=== PATIENT | female | born 1980 | race Caucasian/White ===

== ENCOUNTER 2016-12-10 20:38 | Emergency (ER) | payer MEDICAID ==
[2016-12-10 20:46] VITALS: TEMP 98.2; O2SAT 96
[2016-12-10 21:52] LABS: % IMMATURE GRANULYOCYTES 0.4 % (0.0-1.1); ABSOLUTE IMMATURE GRANULOCYTES 0.02 10^3/uL (0.00-0.10); ADD DIFF? NO; ADD MORPH? YES; ADD SCAN? NO; ATYPICAL LYMPHOCYTE FLAG 10 (0-99); FRAGMENT RBC FLAG 20 (0-99); HEMATOCRIT 35.1 % (38.0-47.0); HEMOGLOBIN 11.1 g/dL (12.6-16.3); LEFT SHIFT FLG 0 (0-99); LIPEMIA HEMOLYSIS FLAG 80 (0-99); MEAN CELL HEMOGLOBIN 21.8 pg (27.9-34.1); MEAN CELL HEMOGLOBIN CONCENTR. 31.6 g/dL (32.4-36.7); MEAN PLATELET VOLUME 8.7 fL (8.7-11.7); PLATELET CLUMPS FLAG 0 (0-99); PLATELET COUNT 342 10^3/uL (150-400); RED CELL DISTRIBUTION WIDTH 18.6 % (11.5-15.2)
[2016-12-10 21:57] LABS: MEAN CELL VOLUME 68.8 fL (81.5-99.8)
--- NOTE | 2016-12-10 22:13 | EDPHY ---
H & P Stated Complaint: vaginal spotting with RLQ, pelvic and back pain since Thursday Time Seen by Provider: 12/10/16 22:01 HPI/ROS: HPI The patient presents with irregular vaginal bleeding which began 7 days ago. She says she is having daily episodes of brown black spotting which is mild. The bleeding started at the time where she would expect her normal menstrual period which she describes as a heavy flow with bright red blood. She is concerned because this is quite different. She has a mild right-sided lower quadrant sharp sort of pain which has been present in similar time course. She is complaining of lower back pain which is constant and feels like an ache to her as well. Her last normal menstrual period was November 08. 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 She is followed by [facility].. REVIEW OF SYSTEMS Constitutional: No fever, no chills. Eyes: No discharge. ENT: No sore throat. Cardiovascular: No chest pain, no palpitations. Respiratory: No cough, no shortness of breath. Gastrointestinal: No abdominal pain, no vomiting. Genitourinary: No hematuria. Musculoskeletal: No back pain. Skin: No rashes. Neurological: No headache. PMHx: As above PHYSICAL General Appearance: Alert, no distress Eyes: Pupils equal and round no pallor or injection ENT, Mouth: Mucous membranes moist Respiratory: There are no retractions, lungs are clear to auscultation Cardiovascular: Regular rate and rhythm Gastrointestinal: Abdomen is soft and non-tender, no masses, bowel sounds normal Neurological: A&O, moves all extremities Skin: Warm and dry, no rashes Musculoskeletal: Neck is supple non tender Extremities: symmetrical, full range of motion Psychiatric: Patient is oriented X 3, there is no agitation Source: Patient Exam Limitations: No limitations - Personal History LMP (Females 10-55): Irregular Current Tetanus/Diphtheria Vaccine: No - Medical/Surgical History Hx Asthma: No Hx Chronic Respiratory Disease: No Hx Diabetes: No Hx Cardiac Disease: No Hx Renal Disease: No Hx Cirrhosis: No Hx Alcoholism: No Hx HIV/AIDS: No Hx Splenectomy or Spleen Trauma: No Other PMH: pmh- migraines. 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), hysteroscopy, L fallopian tube removed - Social History Smoking Status: Never smoked Constitutional: Initial Vital Signs Temperature (C) 36.8 C 12/10/16 20:44 Heart Rate 76 12/10/16 20:44 Respiratory Rate 16 12/10/16 20:44 Blood Pressure 121/88 H 12/10/16 20:44 O2 Sat (%) 96 12/10/16 20:44 O2 Delivery Mode Room Air Allergies/Adverse Reactions: No Known Allergies Allergy (Verified 01/21/15 00:46) Home Medications: Medication Instructions Recorded NK [No Known Home Meds] 12/10/16 Medical Decision Making Differential Diagnosis: This is a 36-year-old female with uterine abnormality who presents with irregular vaginal bleeding with associated right-sided lower abdominal pain. On exam, her abdomen is benign. Differential diagnosis includes ectopic , spontaneous , irregular menses. Patient's labs were checked and were unremarkable. Her CBC does show anemia on par with prior hemoglobin levels. Her qualitative HCG was negative, making ectopic unlikely. She likely has dysmenorrhea. 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 I doubt she is suffering from ovarian torsion given the mild nature of her symptoms. - Data Points Laboratory Results: Laboratory Results 12/10/16 21:42 12/10/16 12/10/16 21:42 21:42 WBC 5.61 10^3/uL 10^3/uL (3.80-9.50) RBC 5.10 10^6/uL 10^6/uL (4.18-5.33) Hgb 11.1 g/dL L g/dL (12.6-16.3) Hct 35.1 % L % (38.0-47.0) MCV 68.8 fL L fL (81.5-99.8) MCH 21.8 pg L pg (27.9-34.1) MCHC 31.6 g/dL L g/dL (32.4-36.7) RDW 18.6 % H % (11.5-15.2) Plt Count 342 10^3/uL 10^3/uL (150-400) MPV 8.7 fL fL (8.7-11.7) Neut % (Auto) 44.6 % % (39.3-74.2) Lymph % (Auto) 44.7 % % (15.0-45.0) [place] % (Auto) 8.4 % % (4.5-13.0) Eos % (Auto) 1.2 % % (0.6-7.6) Baso % (Auto) 0.7 % % (0.3-1.7) Nucleat RBC Rel Count 0.0 % % (0.0-0.2) Absolute Neuts (auto) 2.50 10^3/uL 10^3/uL (1.70-6.50) Absolute Lymphs (auto) 2.51 10^3/uL 10^3/uL (1.00-3.00) Absolute Monos (auto) 0.47 10^3/uL 10^3/uL (0.30-0.80) Absolute Eos (auto) 0.07 10^3/uL 10^3/uL (0.03-0.40) Absolute Basos (auto) 0.04 10^3/uL 10^3/uL (0.02-0.10) Absolute Nucleated RBC 0.00 10^3/uL 10^3/uL (0-0.01) Immature Gran % 0.4 % % (0.0-1.1) Immature Gran # 0.02 10^3/uL 10^3/uL (0.00-0.10) Platelet Estimate ADEQUATE (ADEQ) Hypochromasia 2+ H Microcytic Cells 2+ H Smear Review By Pending Beta HCG, Qual NEGATIVE Departure - Departure Disposition: Home, Routine, Self-Care Clinical Impression: Dysmenorrhea Condition: Good Instructions: Dysmenorrhea (ED) Additional Instructions: The results of your blood test today are unremarkable. Your blood test for is negative. The cause of your symptoms could be related to irregular periods even though you have not had these before. If your pain becomes severe , you should return to the emergency room. Otherwise I would like you to follow up with [facility] in the next few days. Referrals: NONE *PRIMARY CARE P,. [Primary Care Provider] - As per Instructions
[2016-12-10 22:49] LABS: HYPOCHROMIA 2+; MICROCYTES 2+; PLATELET ESTIMATE ADEQUATE (ADEQ)
[2016-12-10 23:22] LABS: BACTERIA TRACE /hpf (NONE SEEN); MUCUS TRACE /lpf (NONE-1+)
[2016-12-10 23:45] VITALS: BP 115/74; PULSE 73; RESP 20
== END 2016-12-10 23:46 | disposition home or self-care (01) ==
DX: N94.6 Dysmenorrhea, unspecified (principal)

== ENCOUNTER 2017-01-26 05:28 | Emergency (ER) | payer MEDICAID ==
[2017-01-26] MEDS ORDERED: DEXAMETHASONE 10 MG/ML VIAL IVP ONE (06:00)
[2017-01-26] MEDS ORDERED: METOCLOPRAMIDE 10 MG/2 ML VIAL IVP ONE (06:00)
[2017-01-26] MEDS ORDERED: NS 1,000 ML IV ONE (06:00)
[2017-01-26] MEDS ORDERED: KETOROLAC 30 MG/1 ML SDV IVP ONE (06:00)
--- NOTE | 2017-01-26 06:04 | EDPHY ---
H & P Stated Complaint: pt c/o nausea/vomiting and headache starting 2100 HPI/ROS: HPI CHIEF COMPLAINT: Headache, nausea, vomiting HISTORY OF PRESENT ILLNESS: This patient very pleasant 37-year-old female she is otherwise healthy however for the past 10 days he has been taking progesterone for vaginal bleeding. She has history of migraine headaches. She presents emergency room at 5:30 a.m. in the morning with a frontal left-sided throbbing pulsating headache. She states feels exactly like her previous migraines. She tells me that this came on around 9:00 p.m. gradual in onset she would normally abortive with ibuprofen but was unable to do that she decided to not take any of ibuprofen went to bed. 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 feeling like a full-blown migraine. She had nausea with 2 episodes of vomiting. She denies any neck pain, neck stiffness, visual disturbance, fever. Denies double vision. This is not the worst headache of her life. She tells me this feels exactly like previous migraines. She has been suffering migraine since 2003. She does not take any daily suppressive medication. She does have photophobia and phonophobia. Patient reports to me she has not had any imaging of her head since 2003. Past Medical History: Migraine headaches, dysfunctional uterine bleeding Past Surgical History: Denies recent surgery Social History: Denies daily use of drugs alcohol tobacco products. Family History: Noncontributory ROS REVIEW OF SYSTEMS: A comprehensive 10 point review of systems is otherwise negative aside from elements mentioned in the history of present illness. Exam Constitutional appears well nontoxic, triage nursing summary reviewed, vital signs reviewed, awake/alert. Eyes normal conjunctivae and sclera, EOMI, PERRLA. HENT normal inspection, atraumatic, moist mucus membranes, no epistaxis, neck supple/ no meningismus, no raccoon eyes. Respiratory clear to auscultation bilaterally, normal breath sounds, no respiratory distress, no wheezing. Cardiovascular rate normal, regular rhythm, no murmur, no edema, distal pulses normal. Gastrointestinal soft, non-tender, no rebound, no guarding, normal bowel sounds, no distension, no pulsatile mass. Genitourinary no CVA tenderness. Musculoskeletal no midline vertebral tenderness, full range of motion, no calf swelling, no tenderness of extremities, no meningismus, good pulses, neurovascularly intact. Skin pink, warm, & dry, no rash, skin atraumatic. Neurologic awake, alert and oriented x 3, AAOx3, moves all 4 extremities equally, motor intact, sensory intact, CN II-XII intact, normal cerebellar, normal vision, normal speech. Psychiatric normal mood/affect. Heme/Lymph/Immune no lymphadenopathy. Differential Diagnosis: Includes but is not limited to in migraine headache, tension headache, cluster headache, intracranial bleed, tumor Medical Decision Making: Plan for this patient she appears well nontoxic her neurological exam is unremarkable. Will place an IV in her, and give her migraine cocktail for abortive care for migraine. Given that it has been over 13 years since last imaging I will image her with CT head without contrast. She is agreeable for this. Reason for CT scan is headache with associated nausea vomiting. Re-evaluation: [id number]: Re-evaluation at this time patient resting comfortably. CT scan of the head is been reviewed. No acute bleed or tumor. She is feeling much better after migraine cocktail. She states her migraine headache has improved by 90%. She feels comfortable going home. Neurological exam is unremarkable. Nontoxic appearing, no meningeal signs. She would like to go home and sleep. 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, L fallopian tube removed - Social History Smoking Status: Never smoked Constitutional: Initial Vital Signs Temperature (C) 36.8 C 01/26/17 05:31 Heart Rate 70 01/26/17 05:31 Respiratory Rate 16 01/26/17 05:31 Blood Pressure 124/62 H 01/26/17 05:31 O2 Sat (%) 99 01/26/17 05:31 O2 Delivery Mode Room Air Allergies/Adverse Reactions: No Known Allergies Allergy (Verified 01/21/15 00:46) Home Medications: Medication Instructions Recorded Progesterone 01/26/17 RX: Ibuprofen [Motrin (*)] 800 mg PO Q6-8PRN #10 tab 01/26/17 Medical Decision Making - Data Points Medications Given: Discontinued Medications Dexamethasone (Decadron Injection) 10 mg IVP EDNOW ONE Stop: 01/26/17 06:01 Last Admin: 01/26/17 06:05 Dose: 10 mg Diphenhydramine HCl (Benadryl Injection) 50 mg IVP EDNOW ONE Stop: 01/26/17 06:01 Last Admin: 01/26/17 06:05 Dose: 50 mg Sodium Chloride (Ns) 1,000 mls @ 0 mls/hr IV ONCE ONE; Wide Open PRN Reason: Protocol Stop: 01/26/17 06:01 Last Admin: 01/26/17 06:04 Dose: 1,000 mls Ketorolac Tromethamine (Toradol) 30 mg IVP EDNOW ONE Stop: 01/26/17 06:01 Last Admin: 01/26/17 06:05 Dose: 30 mg Metoclopramide HCl (Reglan Injection) 10 mg IVP EDNOW ONE Stop: 01/26/17 06:01 Last Admin: 01/26/17 06:05 Dose: 10 mg Departure - Departure Disposition: Home, Routine, Self-Care Clinical Impression: Migraine headache Qualifiers: Migraine type: other Status migrainosus presence: without status migrainosus Intractability: not intractable Qualified Code(s): G43.809 - Other migraine, not intractable, without status migrainosus Condition: Good Instructions: Migraine Headache (ED) Additional Instructions: 1.Drink lots of fluids stay well-hydrated. 2. Cool dark environment today . No loud noises no bright lights. 3. Return emergency room if there is worsening symptoms questions or concerns. Referrals: NONE *PRIMARY CARE P,. [Primary Care Provider] - As per Instructions Manny Yoo MD [Medical Doctor] - As per Instructions Prescriptions: RX: Ibuprofen [Motrin (*)] 800 mg PO Q6-8PRN #10 tab
[2017-01-26 06:59] VITALS: BP 104/62; PULSE 64; RESP 18; TEMP 98.6; O2SAT 98
== END 2017-01-26 06:59 | disposition home or self-care (01) ==
DX: G43.809 Other migraine, not intractable, without status migrainosus (principal); E86.9 Volume depletion, unspecified
CPT/HCPCS: 96374; J1100; J1200; J1885; J2765

== ENCOUNTER → 2018-01-29 | Outpatient (CLI) | payer MEDICAID | LOC: FIMAGING 11:33 | PROVIDERS: ATTEND Obstetrics & Gynecology Gynecology | DX: N93.8 Other specified abnormal uterine and vaginal bleeding (principal) ==